=== PATIENT | male | born 1980 | race Caucasian/White ===

== ENCOUNTER 2016-08-01 12:42 | Emergency (ER) | payer MEDICAID, OTHER ==
[~2016-08-01] VITALS: Ht 175.3 cm; Wt 83.9 kg
[~2016-08-01 12:42] MED LIST: BUPR15TASR PO; GABA-283 PO; LATU40TA PO; LIDO1OIN2 TOP; MOTR200T44 PO; TRAZ10TA PO
[2016-08-01] MEDS ORDERED: METH40TA PO (13:13)
[2016-08-01] MEDS ORDERED: NEUR400C PO (14:27)
[2016-08-01 14:46] VITALS: BP 134/83
== END 2016-08-01 14:53 | disposition home or self-care (01) ==
LOC: M ED 14:37
DX: Z76.0 Encounter for issue of repeat prescription (principal); F19.10 Other psychoactive substance abuse, uncomplicated; F17.200 Nicotine dependence, unspecified, uncomplicated; Z88.5 Allergy status to narcotic agent; Z79.899 Other long term (current) drug therapy

== ENCOUNTER 2016-08-27 16:06 | Emergency (ER) | payer OTHER ==
[~2016-08-27] VITALS: Ht 175.3 cm; Wt 83.9 kg
[~2016-08-27 16:06] MED LIST changes: +METH40TA PO; +NEUR400C PO
[2016-08-27 16:13] VITALS: BP 129/77
[2016-08-27] MEDS ORDERED: GABA-283 PO (16:59)
== END 2016-08-27 17:12 | disposition home or self-care (01) ==
LOC: M ED 17:10
DX: Z76.0 Encounter for issue of repeat prescription (principal); M54.9 Dorsalgia, unspecified; F41.9 Anxiety disorder, unspecified; F33.9 Major depressive disorder, recurrent, unspecified; Z79.899 Other long term (current) drug therapy; Z79.891 Long term (current) use of opiate analgesic; Z88.5 Allergy status to narcotic agent; F17.210 Nicotine dependence, cigarettes, uncomplicated

== ENCOUNTER 2016-09-18 16:40 | Emergency (ER) | payer OTHER ==
[~2016-09-18] VITALS: Ht 175.3 cm; Wt 83.9 kg
[2016-09-18 16:41] VITALS: BP 158/83
[2016-09-18] MEDS ORDERED: GABA-283 PO (17:32)
== END 2016-09-18 18:15 | disposition home or self-care (01) ==
LOC: M ED 17:17
DX: Z76.0 Encounter for issue of repeat prescription (principal); M54.9 Dorsalgia, unspecified; Z88.8 Allergy status to other drugs, medicaments and biological substances; Z79.899 Other long term (current) drug therapy; F41.9 Anxiety disorder, unspecified; F32.9 Major depressive disorder, single episode, unspecified

== ENCOUNTER → 2016-11-05 | Outpatient (CLI) | payer MEDICAID | LOC: M OUTALCOH 09:45 | PROVIDERS: ATTEND Psychiatry & Neurology Psychiatry | DX: F11.20 Opioid dependence, uncomplicated (principal) ==

== ENCOUNTER 2016-11-19 16:40 | Emergency (ER) | payer OTHER ==
[~2016-11-19] VITALS: Ht 175.3 cm; Wt 83.2 kg
[2016-11-19] MEDS ORDERED: NEUR800T PO (16:51)
[2016-11-19 17:48] LABS: MEAN CORPUSCULAR HEMOGLOBIN 30.9 pg (27.0-33.0); MEAN CORPUSCULAR HGB CONC 34.8 g/dl (32.0-36.5); MEAN CORPUSCULAR VOLUME 88.5 fl (80.0-96.0); RED CELL DISTRIBUTION WIDTH 12.8 % (11.5-14.5)
[2016-11-19 18:30] LABS: ALBUMIN 4.4 GM/DL (3.2-5.2); ALBUMIN/GLOBULIN RATIO 1.22 (1.00-1.93); ALKALINE PHOSPHATASE 106 U/L (45-117); ALT/SGPT 25 U/L (12-78); ANION GAP 10 MEQ/L (8-16); AST/SGOT 22 U/L (15-37); BILIRUBIN,DIRECT 0.2 MG/DL (0.0-0.2); BILIRUBIN,TOTAL 0.9 MG/DL (0.2-1.0); BLOOD UREA NITROGEN 16 MG/DL (7-18); CALCIUM LEVEL 9.1 MG/DL (8.5-10.1); CARBON DIOXIDE LEVEL 27 MEQ/L (21-32); CHLORIDE LEVEL 102 MEQ/L (98-107); CREATININE FOR GFR 0.72 MG/DL (0.70-1.30); GLOMERULAR FILTRATION RATE > 60.0 (>60); GLUCOSE, FASTING 111 MG/DL (70-105); POTASSIUM SERUM 3.6 MEQ/L (3.5-5.1); SODIUM LEVEL 139 MEQ/L (136-145)
[2016-11-19 18:46] LABS: METHADONE URINE POSITIVE (NEGATIVE)
[2016-11-19 19:49] VITALS: BP 133/90
== END 2016-11-19 20:01 | disposition home or self-care (01) ==
LOC: M ED 17:36
DX: F19.10 Other psychoactive substance abuse, uncomplicated (principal); F31.9 Bipolar disorder, unspecified; F17.200 Nicotine dependence, unspecified, uncomplicated; F10.10 Alcohol abuse, uncomplicated; F12.10 Cannabis abuse, uncomplicated; F14.10 Cocaine abuse, uncomplicated; Z79.899 Other long term (current) drug therapy; Z88.5 Allergy status to narcotic agent

== ENCOUNTER 2016-11-26 16:00 | Outpatient (RCR) | payer OTHER ==
[~2016-11-26 16:00] MED LIST changes: +NEUR800T PO
== END 2016-11-28 ==
LOC: M PT 16:00
PROVIDERS: ATTEND Orthopaedic Surgery
DX: Z51.89 Encounter for other specified aftercare (principal); M54.5 Low back pain

== ENCOUNTER 2016-12-18 12:35 | Emergency (ER) | payer OTHER ==
[~2016-12-18] VITALS: Ht 175.3 cm; Wt 82.7 kg
[2016-12-18 12:35] VITALS: BP 136/68
[2016-12-18] MEDS ORDERED: RISP3TAB3 (12:46)
[2016-12-18] MEDS ORDERED: FLUO20CA19 (12:46)
--- NOTE | 2016-12-19 07:31 | ECGEPIP ---
Stationary ECG Study [facility] - ED Test Date: 2016-12-18 Pat Name: KWAME FOLEY Department: Room: - Gender: M [place]: : 1980 Requested By: Ludin Cordon Order Number: [id number] Reading MD: Audelia Dominguez Measurements Intervals [place] Rate: 106 P: 59 CO: 140 QRS: 67 QRSD: 95 T: 49 QT: 328 QTc: 437 Interpretive Statements SINUS TACHYCARDIA ABNORMAL RHYTHM ECG NO PRIOR FOR COMPARISON Electronically Signed On 12-19-2016 7:31:30 EDT by Audelia Dominguez
== END 2016-12-18 14:52 | disposition left against medical advice (07) ==
LOC: M ED 12:35
DX: T78.40XA Allergy, unspecified, initial encounter (principal); T43.595A Adverse effect of other antipsychotics and neuroleptics, initial encounter; Y92.9 Unspecified place or not applicable; Y93.9 Activity, unspecified; F41.9 Anxiety disorder, unspecified; F32.9 Major depressive disorder, single episode, unspecified; F43.10 Post-traumatic stress disorder, unspecified; F90.9 Attention-deficit hyperactivity disorder, unspecified type; R94.31 Abnormal electrocardiogram [ECG] [EKG]; Z79.899 Other long term (current) drug therapy; Z88.5 Allergy status to narcotic agent

== ENCOUNTER 2017-03-18 02:12 | Emergency (ER) | payer OTHER ==
[~2017-03-18] VITALS: Ht 175.3 cm; Wt 77.0 kg
[~2017-03-18 02:12] MED LIST changes: +FLUO20CA19; +RISP3TAB3
[2017-03-18 02:14] VITALS: BP 119/62
[2017-03-18] MEDS ORDERED: WELL200T PO (02:18)
== END 2017-03-18 03:16 | disposition home or self-care (01) ==
LOC: M ED 02:12
DX: F32.9 Major depressive disorder, single episode, unspecified (principal); F41.9 Anxiety disorder, unspecified; F43.10 Post-traumatic stress disorder, unspecified; F17.200 Nicotine dependence, unspecified, uncomplicated; F11.10 Opioid abuse, uncomplicated; Z79.899 Other long term (current) drug therapy

== ENCOUNTER 2017-12-28 07:09 | Inpatient (IN) | payer MEDICAID, SELFPAY, OTHER ==
[2017-12-28 08:40] LABS: HEMOGLOBIN 14.4 g/dl (13.5-17.5); MEAN CORPUSCULAR HEMOGLOBIN 31.6 pg (27.0-33.0); MEAN CORPUSCULAR HGB CONC 34.3 g/dl (32.0-36.5); MEAN CORPUSCULAR VOLUME 92.1 fl (80.0-96.0); PLATELET COUNT, AUTOMATED 286 10^3/uL (150-450); RED BLOOD COUNT 4.56 10^6/uL (4.30-6.10); RED CELL DISTRIBUTION WIDTH 12.9 % (11.5-14.5); WHITE BLOOD COUNT 9.6 10^3/uL (4.0-10.0)
[2017-12-28 08:59] LABS: AMPHETAMINES LEVEL URINE NEGATIVE (NEGATIVE); BARBITURATES URINE NEGATIVE (NEGATIVE); BENZODIAZEPINES URINE NEGATIVE (NEGATIVE); CANNABINOIDS URINE POSITIVE (NEGATIVE); COCAINE METABOLITE URINE POSITIVE (NEGATIVE); METHADONE URINE NEGATIVE (NEGATIVE); OPIATES URINE NEGATIVE (NEGATIVE); PHENCYCLIDINE URINE NEGATIVE (NEGATIVE)
[2017-12-28 09:10] LABS: ALBUMIN 3.7 GM/DL (3.2-5.2); ALBUMIN/GLOBULIN RATIO 1.16 (1.00-1.93); ALKALINE PHOSPHATASE 98 U/L (45-117); ALT/SGPT 30 U/L (12-78); ANION GAP 6 MEQ/L (8-16); AST/SGOT 17 U/L (7-37); BILIRUBIN,DIRECT 0.1 MG/DL (0.0-0.2); BILIRUBIN,TOTAL 0.5 MG/DL (0.2-1.0); BLOOD UREA NITROGEN 11 MG/DL (7-18); CALCIUM LEVEL 8.6 MG/DL (8.5-10.1); CARBON DIOXIDE LEVEL 28 MEQ/L (21-32); CHLORIDE LEVEL 105 MEQ/L (98-107); CREATININE FOR GFR 0.66 MG/DL (0.70-1.30); GLOMERULAR FILTRATION RATE > 60.0 (>60); GLUCOSE, FASTING 98 MG/DL (70-100); POTASSIUM SERUM 4.3 MEQ/L (3.5-5.1); SALICYLATE LEVEL < 1.7 MG/DL (5.0-30.0); SODIUM LEVEL 139 MEQ/L (136-145); THYROID STIMULATING HORMONE 0.771 uIU/ML (0.358-3.740); TOTAL PROTEIN 6.9 GM/DL (6.4-8.2)
[2017-12-28 09:20] LABS: ACETAMINOPHEN LEVEL < 2.0 UG/ML (10.0-30.0); ETHYL ALCOHOL (ETHANOL) < 0.003 % (0.000-0.010)
[2017-12-28] MEDS: NICOTINE 21MG/24HR 1 EA TRANSDERMAL TD (13:55)
[2017-12-28] MEDS: hydrOXYzine 50 MG TAB PO ×2 (13:57→20:27)
[2017-12-28] MEDS: ACETAMINOPHEN TAB 650MG DOSE (2X325MG) PO ×2 (13:58→20:28)
[2017-12-28] MEDS ORDERED: MOM 30ML SUSPENSION UDC PO (14:00)
[2017-12-28] MEDS ORDERED: MAALOX 30 ML SUSP *UDC PO (14:00)
[2017-12-28] MEDS: traZODone 50 MG TAB PO (20:27)
[2017-12-29] MEDS: IBUPROFEN 600 MG TAB PO ×2 (08:09→20:20)
[2017-12-29] MEDS: hydrOXYzine 50 MG TAB PO (08:09)
[2017-12-29] MEDS: NICOTINE 21MG/24HR 1 EA TRANSDERMAL TD (08:09)
[2017-12-29] MEDS: buPROPion **XL** TABLET 150MG (WELLBUTRIN XL) PO (11:51)
[2017-12-29] MEDS: FLUoxetine 20 MG CAP PO (11:51)
[2017-12-29] MEDS: SODIUM CHLORIDE NASAL 0.65% SPRAY BTL (OCEAN) (12:03)
[2017-12-29] MEDS: AUGMENTIN 875 MG TAB PO ×2 (14:32→20:19)
[2017-12-29 14:33] LABS: CHLAMYDIA DNA AMPLIFICATION NEGATIVE (NEGATIVE); GC DNA AMPLIFICATION NEGATIVE (NEGATIVE)
[2017-12-29] MEDS: ACETAMINOPHEN TAB 650MG DOSE (2X325MG) PO (14:33)
[2017-12-29 16:30] LABS: AMORPHOUS SEDIMENT RFX LARGE (NEGATIVE); KETONE, URINE AUTO RFX NEGATIVE (NEGATIVE); LEUKOCYTE ESTERASE UR AUTO RFX NEGATIVE (NEGATIVE); MUCUS, URINE RFX MODERATE (NEGATIVE); NITRITE, URINE AUTO RFX NEGATIVE (NEGATIVE); RBC, URINE AUTO RFX 0 /HPF (0-3); SPECIFIC GRAVITY UR AUTO RFX 1.026 (1.002-1.035); SQUAM EPITHELIAL CELL UR AURFX 0 /HPF (0-6); WBC, URINE AUTO RFX 0 /HPF (0-3)
[2017-12-29] MEDS: QUEtiapine FUMARATE 100 MG TAB PO (20:18)
[2017-12-30] MEDS: buPROPion **XL** TABLET 150MG (WELLBUTRIN XL) PO (08:34)
[2017-12-30] MEDS: AUGMENTIN 875 MG TAB PO ×2 (08:34→20:08)
[2017-12-30] MEDS: FLUoxetine 20 MG CAP PO (08:36)
[2017-12-30] MEDS: ACETAMINOPHEN TAB 650MG DOSE (2X325MG) PO ×3 (08:36→20:09)
[2017-12-30] MEDS: NICOTINE 21MG/24HR 1 EA TRANSDERMAL TD ×2 (08:36→09:41)
[2017-12-30 09:35] LABS: HEPATITIS B SURFACE ANTIGEN NEGATIVE (NEGATIVE)
[2017-12-30] MEDS: IBUPROFEN 600 MG TAB PO ×2 (09:35→16:04)
[2017-12-30] MEDS: SODIUM CHLORIDE NASAL 0.65% SPRAY BTL (OCEAN) ×3 (09:36→20:09)
[2017-12-30 10:02] LABS: HEPATITIS C VIRUS ABY INDEX 0.3 INDEX (<0.8)
[2017-12-30 10:03] LABS: HEPATITIS B CORE ANTIBODY IGM NEGATIVE (NEGATIVE); HIV 1&2 SCREEN CENTAUR NEGATIVE (NEGATIVE)
[2017-12-30 10:04] LABS: HEPATITIS A ANTIBODY IGM NEGATIVE (NEGATIVE)
[2017-12-30] MEDS: GABAPENTIN 300 MG CAP PO ×2 (15:00→20:08)
[2017-12-30] MEDS: QUEtiapine FUMARATE 100 MG TAB PO (20:08)
[2017-12-31] MEDS: ACETAMINOPHEN TAB 650MG DOSE (2X325MG) PO (06:23)
[2017-12-31] MEDS: SODIUM CHLORIDE NASAL 0.65% SPRAY BTL (OCEAN) ×2 (06:24→09:52)
[2017-12-31] MEDS: FLUoxetine 20 MG CAP PO (08:05)
[2017-12-31] MEDS: AUGMENTIN 875 MG TAB PO (08:05)
[2017-12-31] MEDS: GABAPENTIN 300 MG CAP PO (08:05)
[2017-12-31] MEDS: buPROPion **XL** TABLET 150MG (WELLBUTRIN XL) PO (08:05)
[2017-12-31] MEDS: IBUPROFEN 600 MG TAB PO (08:06)
== END 2017-12-31 11:20 | disposition home or self-care (01) | DRG 754 ==
LOC: M ED 07:09 → M ED INP 10:21 → M PSY 12:34
DX: F43.21 Adjustment disorder with depressed mood (principal); R45.851 Suicidal ideations; F60.2 Antisocial personality disorder; M54.5 Low back pain; R51 Headache; R31.9 Hematuria, unspecified; M54.2 Cervicalgia; F17.210 Nicotine dependence, cigarettes, uncomplicated; Z79.899 Other long term (current) drug therapy; Z76.5 Malingerer [conscious simulation]; Z88.8 Allergy status to other drugs, medicaments and biological substances

== ENCOUNTER 2018-08-26 15:42 | Emergency (ER) | payer MEDICAID ==
[~2018-08-26] VITALS: Ht 175.3 cm; Wt 79.5 kg
[~2018-08-26 15:42] MED LIST changes: +ALEV220T26 PO; +AMOX500C PO; +AMOX875T2 PO; +BUPR150T3 PO; +CIPRHCOTIC AS; +FLUO20CA19 PO; -GABA-283 PO; +GABA-843 PO; +GABA-845 PO; +HYDRO50TAB PO; +PROZ40CA PO; +QUET1TAB8 PO; +TRAZO50TA PO; +WELL200T PO
[2018-08-26] MEDS ORDERED: SUBO8MIS (15:53)
[2018-08-26] MEDS ORDERED: GABA800T4 (15:53)
[2018-08-26 18:16] LABS: BASO % 0.4 % (0.0-1.0); EOS # 0.2 10^3/uL (0.0-0.50); EOS % 3.4 % (0.0-3.0); HEMATOCRIT 42.7 % (42.0-52.0); HEMOGLOBIN 14.9 g/dl (13.5-17.5); LYMPH # 1.8 10^3/uL (1.5-4.5); LYMPH % 34.9 % (24.0-44.0); MEAN CORPUSCULAR HEMOGLOBIN 29.9 pg (27.0-33.0); MEAN CORPUSCULAR HGB CONC 34.9 g/dl (32.0-36.5); MEAN CORPUSCULAR VOLUME 85.7 fl (80.0-96.0); MONO # 0.6 10^3/uL (0.0-0.8); MONO % 12.3 % (0.0-5.0); NEUTROPHILS # 2.5 10^3/uL (1.8-7.7); NEUTROPHILS % 48.8 % (36.0-66.0); PLATELET COUNT, AUTOMATED 236 10^3/uL (150-450); RED BLOOD COUNT 4.98 10^6/uL (4.30-6.10); WHITE BLOOD COUNT 5.1 10^3/uL (4.0-10.0)
[2018-08-26 18:39] LABS: ALBUMIN 4.1 GM/DL (3.2-5.2); ALT/SGPT 282 U/L (12-78); BILIRUBIN,TOTAL 0.7 MG/DL (0.2-1.0); BLOOD UREA NITROGEN 11 MG/DL (7-18); CALCIUM LEVEL 8.6 MG/DL (8.5-10.1); CARBON DIOXIDE LEVEL 29 MEQ/L (21-32); CHLORIDE LEVEL 103 MEQ/L (98-107); CPK CREATINE PHOSPHOKINASE 129 U/L (39-308); CREATININE FOR GFR 0.64 MG/DL (0.70-1.30); GLOMERULAR FILTRATION RATE > 60.0 (>60); GLUCOSE, FASTING 80 MG/DL (70-100); LIPASE 204 U/L (73-393); POTASSIUM SERUM 3.9 MEQ/L (3.5-5.1); SODIUM LEVEL 139 MEQ/L (136-145); TOTAL PROTEIN 7.3 GM/DL (6.4-8.2); TROPONIN I < 0.02 NG/ML (< 0.10)
[2018-08-26 18:55] LABS: AMPHETAMINES LEVEL URINE POSITIVE (NEGATIVE); BARBITURATES URINE NEGATIVE (NEGATIVE); BENZODIAZEPINES URINE NEGATIVE (NEGATIVE); CANNABINOIDS URINE POSITIVE (NEGATIVE); COCAINE METABOLITE URINE NEGATIVE (NEGATIVE); METHADONE URINE NEGATIVE (NEGATIVE); OPIATES URINE NEGATIVE (NEGATIVE); PHENCYCLIDINE URINE NEGATIVE (NEGATIVE)
[2018-08-26 19:05] LABS: APPEARANCE, URINE CLEAR (CLEAR); BACTERIA, URINE AUTO NEGATIVE (NEGATIVE); BILIRUBIN, URINE AUTO NEGATIVE (NEGATIVE); BLOOD, URINE BLOOD NEGATIVE (NEGATIVE); COLOR, URINE AMBER (YELLOW); GLUCOSE, URINE (UA) AUTO NEGATIVE (NEGATIVE); KETONE, URINE AUTO TRACE mg/dL (NEGATIVE); LEUKOCYTE ESTERASE, URINE AUTO NEGATIVE (NEGATIVE); MUCUS, URINE SMALL (NEGATIVE); NITRITE, URINE AUTO NEGATIVE (NEGATIVE); PROTEIN, URINE AUTO NEGATIVE (NEGATIVE); RBC, URINE AUTO 0 /HPF (0-3); SPECIFIC GRAVITY URINE AUTO 1.025 (1.002-1.035); SQUAMOUS EPITHELIAL CELL UR AU 0 /HPF (0-6); WBC, URINE AUTO 1 /HPF (0-3)
--- NOTE | 2018-08-26 19:37 | REP ---
Clinical: Constipation and left-sided abdominal pain. Technique: Upright view of the chest with supine and upright views of the abdomen and pelvis. Findings: Frontal upright view of the chest demonstrates no acute cardiopulmonary process or free air below the diaphragm to suspect pneumoperitoneum. Supine and upright views of the abdomen and pelvis demonstrate nonspecific bowel gas pattern without obstruction or perforation. Mild/moderate fecal stasis and constipation is suggested. No organomegaly. No abnormal calcifications. Skeletal structures normal for age. Impression: mild/moderate fecal stasis Electronically Signed by Tony Wooten MD 08/26/2018 07:29 P
--- NOTE | 2018-08-26 20:14 | REP ---
Clinical: Elevated liver function tests and right upper quadrant pain . Technique: Hooks scale ultrasound using curved array transducer. Findings: The liver and pancreas are normal in contour, size, and echogenicity without focal hepatic or pancreatic lesions identified. The gallbladder is normal without gallstones, wall thickening or pericholecystic fluid. No biliary ductal dilatation is appreciated, and the common bile duct measures 4.3 mm diameter. The right kidney is normal in reniform shape without hydronephrosis and measures 11.6 x 5.2 x 6.1 cm. No ascites. Visualized portions of the abdominal aorta normal. Impression: Normal right upper quadrant and gallbladder abdominal ultrasound. Electronically Signed by Tony Wooten MD 08/26/2018 08:05 P
[2018-08-26] MEDS ORDERED: COLA100C5 PO (20:53)
[2018-08-26 21:28] VITALS: BP 116/60
[2018-08-27 09:45] LABS: HEPATITIS B SURFACE ANTIGEN NEGATIVE (NEGATIVE)
[2018-08-27 10:13] LABS: HEPATITIS B CORE ANTIBODY IGM NEGATIVE (NEGATIVE)
[2018-08-27 10:15] LABS: HEPATITIS A ANTIBODY IGM NEGATIVE (NEGATIVE); HEPATITIS C VIRUS ABY INDEX > 11.0 INDEX (<0.8)
== END 2018-08-26 21:26 | disposition home or self-care (01) ==
LOC: M ED 15:42
DX: K59.00 Constipation, unspecified (principal); R07.89 Other chest pain; R10.9 Unspecified abdominal pain; R79.9 Abnormal finding of blood chemistry, unspecified; R00.1 Bradycardia, unspecified; F17.200 Nicotine dependence, unspecified, uncomplicated; F33.9 Major depressive disorder, recurrent, unspecified; F41.9 Anxiety disorder, unspecified; F43.10 Post-traumatic stress disorder, unspecified; F20.9 Schizophrenia, unspecified; Z88.5 Allergy status to narcotic agent; Z88.8 Allergy status to other drugs, medicaments and biological substances; Z79.899 Other long term (current) drug therapy

== ENCOUNTER 2018-09-03 16:59 | Emergency (ER) | payer MEDICAID ==
[~2018-09-03] VITALS: Ht 175.3 cm; Wt 84.1 kg
[~2018-09-03 16:59] MED LIST changes: +COLA100C5 PO; +GABA800T4; +SUBO8MIS
[2018-09-03] MEDS ORDERED: NS 1,000 ML IV ONE ×2 (17:15→18:30)
[2018-09-03 17:31] LABS: BASO % 0.2 % (0.0-1.0); EOS # 0.2 10^3/uL (0.0-0.50); EOS % 3.2 % (0.0-3.0); HEMATOCRIT 40.8 % (42.0-52.0); HEMOGLOBIN 14.4 g/dl (13.5-17.5); LYMPH # 1.4 10^3/uL (1.5-4.5); MEAN CORPUSCULAR HEMOGLOBIN 30.6 pg (27.0-33.0); MEAN CORPUSCULAR HGB CONC 35.3 g/dl (32.0-36.5); MEAN CORPUSCULAR VOLUME 86.8 fl (80.0-96.0); MONO # 0.7 10^3/uL (0.0-0.8); MONO % 14.2 % (0.0-5.0); NEUTROPHILS # 2.5 10^3/uL (1.8-7.7); NEUTROPHILS % 53.2 % (36.0-66.0); PLATELET COUNT, AUTOMATED 237 10^3/uL (150-450); WHITE BLOOD COUNT 4.7 10^3/uL (4.0-10.0)
[2018-09-03 18:05] LABS: ACETAMINOPHEN LEVEL < 2.0 UG/ML (10.0-30.0); ALBUMIN 4.2 GM/DL (3.2-5.2); ALT/SGPT 182 U/L (12-78); BILIRUBIN,DIRECT 0.3 MG/DL (0.0-0.2); BILIRUBIN,TOTAL 0.8 MG/DL (0.2-1.0); BLOOD UREA NITROGEN 7 MG/DL (7-18); CALCIUM LEVEL 8.6 MG/DL (8.5-10.1); CARBON DIOXIDE LEVEL 28 MEQ/L (21-32); CHLORIDE LEVEL 102 MEQ/L (98-107); CPK CREATINE PHOSPHOKINASE 499 U/L (39-308); ETHYL ALCOHOL (ETHANOL) < 0.003 % (0.000-0.010); GLOMERULAR FILTRATION RATE > 60.0 (>60); GLUCOSE, FASTING 142 MG/DL (70-100); POTASSIUM SERUM 3.6 MEQ/L (3.5-5.1); SALICYLATE LEVEL 3.8 MG/DL (5.0-30.0); SODIUM LEVEL 137 MEQ/L (136-145); THYROID STIMULATING HORMONE 0.361 uIU/ML (0.358-3.740); TOTAL PROTEIN 7.2 GM/DL (6.4-8.2)
[2018-09-03 18:19] LABS: AMPHETAMINES LEVEL URINE POSITIVE (NEGATIVE); BARBITURATES URINE NEGATIVE (NEGATIVE); BENZODIAZEPINES URINE NEGATIVE (NEGATIVE); CANNABINOIDS URINE POSITIVE (NEGATIVE); COCAINE METABOLITE URINE NEGATIVE (NEGATIVE); METHADONE URINE NEGATIVE (NEGATIVE); OPIATES URINE POSITIVE (NEGATIVE); PHENCYCLIDINE URINE NEGATIVE (NEGATIVE)
[2018-09-03 20:05] VITALS: BP 109/65
--- NOTE | 2018-09-03 21:26 | ECGEPIP ---
Stationary ECG Study [facility] - ED Test Date: 2018-09-03 Pat Name: KWAME FOLEY Department: Room: - Gender: M Employment Legal Assistant: : 1980 Requested By: Audelia Dominguez Order Number: [id number] Reading MD: Yuniel Georges Measurements Intervals [place] Rate: 86 P: 57 AR: 140 QRS: 63 QRSD: 104 T: 43 QT: 380 QTc: 456 Interpretive Statements SINUS RHYTHM Nonspecific ST-T wave abnormalities Electronically Signed On 09-03-2018 21:25:48 EDT by Yuniel Georges
== END 2018-09-03 20:51 | disposition home or self-care (01) ==
LOC: M ED 16:59
DX: F19.10 Other psychoactive substance abuse, uncomplicated (principal); F20.9 Schizophrenia, unspecified; G89.29 Other chronic pain; Z72.0 Tobacco use; Z79.899 Other long term (current) drug therapy; Z88.5 Allergy status to narcotic agent; Z88.8 Allergy status to other drugs, medicaments and biological substances
CPT/HCPCS: 36415; 80048; 80076; 80307; 82550; 84443; 85025; 93005; 93041; 94760; 96360; 96361; 99284; G0480

== ENCOUNTER 2019-07-20 16:23 | Emergency (ER) | payer OTHER ==
[~2019-07-20] VITALS: Ht 175.3 cm; Wt 86.4 kg
[~2019-07-20 16:23] MED LIST changes: -FLUO20CA19; -FLUO20CA19 PO; +FLUO20CA22; +FLUO20CA22 PO; +HYDR1TAB33 PO; -HYDRO50TAB PO; +QUET100T2 PO; -QUET1TAB8 PO; -TRAZ10TA PO; +TRAZ1TAB10 PO; +TRAZ1TAB12 PO; -TRAZO50TA PO
[2019-07-20] MEDS ORDERED: ELIM5CRE2 TOP (17:41)
[2019-07-20 18:12] VITALS: BP 128/70
== END 2019-07-20 18:13 | disposition home or self-care (01) ==
LOC: M ED 16:23
DX: B86 Scabies (principal); Z79.899 Other long term (current) drug therapy; Z88.5 Allergy status to narcotic agent

== ENCOUNTER 2019-07-26 10:41 | Emergency (ER) | payer OTHER ==
[~2019-07-26] VITALS: Ht 175.3 cm; Wt 84.1 kg
[~2019-07-26 10:41] MED LIST changes: +ELIM5CRE2 TOP
[2019-07-26 12:40] LABS: BASO % 0.5 % (0.0-1.0); EOS # 0.1 10^3/uL (0.0-0.5); EOS % 2.6 % (0.0-3.0); HEMATOCRIT 40.4 % (42.0-52.0); HEMOGLOBIN 13.9 g/dl (13.5-17.5); LYMPH # 0.4 10^3/uL (1.5-5.0); LYMPH % 10.9 % (24.0-44.0); MEAN CORPUSCULAR HEMOGLOBIN 30.2 pg (27.0-33.0); MEAN CORPUSCULAR HGB CONC 34.4 g/dl (32.0-36.5); MEAN CORPUSCULAR VOLUME 87.8 fl (80.0-96.0); MONO # 0.8 10^3/uL (0.0-0.8); MONO % 21.9 % (0.0-5.0); NEUTROPHILS # 2.5 10^3/uL (1.5-8.5); NEUTROPHILS % 63.8 % (36.0-66.0); PLATELET COUNT, AUTOMATED 162 10^3/uL (150-450); WHITE BLOOD COUNT 3.8 10^3/uL (4.0-10.0)
[2019-07-26 13:02] LABS: AMPHETAMINES LEVEL URINE NEGATIVE (NEGATIVE); BARBITURATES URINE NEGATIVE (NEGATIVE); BENZODIAZEPINES URINE NEGATIVE (NEGATIVE); CANNABINOIDS URINE NEGATIVE (NEGATIVE); COCAINE METABOLITE URINE NEGATIVE (NEGATIVE); METHADONE URINE NEGATIVE (NEGATIVE); OPIATES URINE POSITIVE (NEGATIVE); PHENCYCLIDINE URINE NEGATIVE (NEGATIVE)
[2019-07-26 13:38] LABS: ALBUMIN 3.6 GM/DL (3.2-5.2); ALT/SGPT 30 U/L (12-78); BILIRUBIN,TOTAL 0.4 MG/DL (0.2-1.0); BLOOD UREA NITROGEN 9 MG/DL (7-18); C REACTIVE PROTEIN QUANTITATIV 9.63 MG/DL (0.00-0.30); CARBON DIOXIDE LEVEL 29 MEQ/L (21-32); CHLORIDE LEVEL 99 MEQ/L (98-107); CREATININE FOR GFR 0.74 MG/DL (0.70-1.30); GLOMERULAR FILTRATION RATE > 60.0 (>60); GLUCOSE, FASTING 120 MG/DL (70-100); POTASSIUM SERUM 3.6 MEQ/L (3.5-5.1); SODIUM LEVEL 133 MEQ/L (136-145); TOTAL PROTEIN 7.2 GM/DL (6.4-8.2)
[2019-07-26] MEDS ORDERED: IBUPROFEN 800 MG TAB PO ONE (14:00)
[2019-07-26 14:18] LABS: ERYTHROCYTE SEDIMENTATION RATE 22 mm/hr (0-15)
--- NOTE | 2019-07-26 14:41 | REP ---
CT LUMBAR SPINE WITHOUT CONTRAST: HISTORY: Moderate low back pain. Radiating to the right hip. No comparison CT study. Comparison radiographs December 31, 2015. TECHNIQUE: Helical scanning is acquired. 4 mm axial images are reformatted along with sagittal and coronal MPR images. CT FINDINGS: Lumbar vertebral body heights are preserved. No fracture or collapse is seen. There is fairly advanced degenerative disc disease at L4-5. This has progressed since the 2016 prior study. There is a vacuum phenomenon in the narrowed L4-5 disc and there is diffuse posterior broad-based disc protrusion with some discogenic calcification. There are irregular sclerotic endplate changes with subcortical cyst formation on both sides of the L4-5 disc. This appears to indent the ventral margin of the thecal sac at L4-5. There is no bony foraminal narrowing. There is no evidence spondylolysis or spondylolisthesis. Other disc spaces are maintained. There is some degenerative disc calcification at T12-L1. No other disc protrusion is seen. The visualized sacrum and SI joints are unremarkable. The urinary bladder is distended at the time of scanning. No definite hydronephrosis. No other extra vertebral abnormality. IMPRESSION: Progressive degenerative disc disease at L4-5. Broad-based disc protrusion at L4-5 with discogenic calcification. Electronically Signed by Balwinder Liao MD 07/26/2019 05:48 P
--- NOTE | 2019-07-26 14:44 | REP ---
RIGHT HIP: TWO VIEWS. HISTORY: Moderate pain. Elevated inflammatory markers. Comparison KUB study is from August 26, 2018. FINDINGS: AP and lateral views of the right hip show smooth, rounded femoral head. Hip joint space preserved. There is suggestion of mild superior acetabular hypertrophy and sclerosis. There is a bony convexity at the head/neck junction superolaterally in the proximal femur and this raises question of cam-type femoral acetabular impingement. Bones, joints, and soft tissues are otherwise unremarkable. No erosive changes seen. IMPRESSION: Bony convexity superolaterally at the head/neck junction of the proximal femur. Question femoroacetabular impingement. Electronically Signed by Balwinder Liao MD 07/26/2019 05:49 P
--- NOTE | 2019-07-26 16:37 | REP ---
CT RIGHT HIP: CT right hip performed without IV contrast in the axial plane. Sagittal and coronal reconstruction images are performed. Correlation is made with plain films of today. Each showed a possible cam type deformity at the femoral head and neck junction. The CT shows mild spurring of the lateral femoral head with no cam type deformity. There is also mild spurring of the acetabulum. There is mild joint space narrowing and subchondral sclerosis. There is no acute fracture or dislocation. There is no intrinsic osseous pathology. Surrounding soft tissue structures are unremarkable. Electronically Signed by Mehran Hooks MD 07/26/2019 08:22 P
[2019-07-26] MEDS ORDERED: PRED20TA PO (16:40)
[2019-07-26 17:11] VITALS: BP 119/59
== END 2019-07-26 17:13 | disposition home or self-care (01) ==
LOC: M ED 10:41 → EDBD 10:41 → M ED 17:13
DX: M25.551 Pain in right hip (principal); G89.29 Other chronic pain; M54.5 Low back pain; M51.26 Other intervertebral disc displacement, lumbar region; M51.36 Other intervertebral disc degeneration, lumbar region; F43.10 Post-traumatic stress disorder, unspecified; F11.10 Opioid abuse, uncomplicated; F41.9 Anxiety disorder, unspecified; F32.9 Major depressive disorder, single episode, unspecified; Z86.19 Personal history of other infectious and parasitic diseases; F17.200 Nicotine dependence, unspecified, uncomplicated; Z79.899 Other long term (current) drug therapy; Z88.5 Allergy status to narcotic agent

== ENCOUNTER 2019-07-29 20:58 | Emergency (ER) | payer OTHER ==
[~2019-07-29] VITALS: Ht 175.3 cm; Wt 81.0 kg
[~2019-07-29 20:58] MED LIST changes: +PRED20TA PO
[2019-07-29] MEDS ORDERED: BUPR8SUB SL (22:32)
[2019-07-29] MEDS ORDERED: PRED10TA2 PO (22:32)
[2019-07-29 23:25] LABS: AMPHETAMINES LEVEL URINE POSITIVE (NEGATIVE); BARBITURATES URINE NEGATIVE (NEGATIVE); BENZODIAZEPINES URINE NEGATIVE (NEGATIVE); CANNABINOIDS URINE POSITIVE (NEGATIVE); COCAINE METABOLITE URINE NEGATIVE (NEGATIVE); METHADONE URINE NEGATIVE (NEGATIVE); OPIATES URINE POSITIVE (NEGATIVE); PHENCYCLIDINE URINE NEGATIVE (NEGATIVE)
[2019-07-29 23:35] LABS: ACETAMINOPHEN LEVEL < 2.0 UG/ML (10.0-30.0); ALT/SGPT 29 U/L (12-78); BILIRUBIN,DIRECT 0.1 MG/DL (0.0-0.2); BILIRUBIN,TOTAL 0.3 MG/DL (0.2-1.0); BLOOD UREA NITROGEN 12 MG/DL (7-18); CALCIUM LEVEL 8.6 MG/DL (8.5-10.1); CARBON DIOXIDE LEVEL 29 MEQ/L (21-32); CHLORIDE LEVEL 105 MEQ/L (98-107); CREATININE FOR GFR 0.61 MG/DL (0.70-1.30); ETHYL ALCOHOL (ETHANOL) < 0.003 % (0.000-0.010); GLOMERULAR FILTRATION RATE > 60.0 (>60); GLUCOSE, FASTING 100 MG/DL (70-100); POTASSIUM SERUM 3.5 MEQ/L (3.5-5.1); SALICYLATE LEVEL 1.9 MG/DL (5.0-30.0); SODIUM LEVEL 141 MEQ/L (136-145); THYROID STIMULATING HORMONE 0.559 uIU/ML (0.358-3.740); TOTAL PROTEIN 7.4 GM/DL (6.4-8.2)
[2019-07-30 00:14] LABS: HEMATOCRIT 37.6 % (42.0-52.0); HEMOGLOBIN 13.1 g/dl (13.5-17.5); MEAN CORPUSCULAR HEMOGLOBIN 30.4 pg (27.0-33.0); MEAN CORPUSCULAR HGB CONC 34.8 g/dl (32.0-36.5); MEAN CORPUSCULAR VOLUME 87.2 fl (80.0-96.0); PLATELET COUNT, AUTOMATED 243 10^3/uL (150-450); RED BLOOD COUNT 4.31 10^6/uL (4.30-6.10); WHITE BLOOD COUNT 7.5 10^3/uL (4.0-10.0)
[2019-07-30] MEDS ORDERED: LORazepam 1 MG TAB PO ONE (01:00)
[2019-07-30] MEDS ORDERED: OLANZapine ORAL DISINTEGRATING TAB 5MG PO ONE (01:00)
[2019-07-30 06:02] VITALS: BP 130/59
--- NOTE | 2019-07-30 07:25 | ECGEPIP ---
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
[2019-07-31] MEDS ORDERED: ELIM5CRE2 TOP (22:44)
== END 2019-07-30 11:59 | disposition home or self-care (01) ==
LOC: M ED 20:58
DX: R00.0 Tachycardia, unspecified (principal); R94.31 Abnormal electrocardiogram [ECG] [EKG]; F19.151 Other psychoactive substance abuse with psychoactive substance-induced psychotic disorder with hallucinations; F14.10 Cocaine abuse, uncomplicated; F12.10 Cannabis abuse, uncomplicated; F17.200 Nicotine dependence, unspecified, uncomplicated; Z88.5 Allergy status to narcotic agent
CPT/HCPCS: 80048; 80076; 80307; 84443; 85027; 93005; 99284; G0480

== ENCOUNTER 2019-07-31 22:30 | Inpatient (IN) | payer MEDICAID, OTHER ==
[~2019-07-31] VITALS: Ht 175.3 cm; Wt 84.7 kg
[~2019-07-31 22:30] MED LIST changes: +BUPR8SUB SL; +PRED10TA2 PO
[2019-07-31] MEDS ORDERED: ELIM5CRE2 TOP (22:44)
[2019-08-01] MEDS ORDERED: diphenhydrAMINE INJ 50MG/ML VIAL (J1200) IM ONE (02:00)
[2019-08-01] MEDS ORDERED: methylPREDNISolone INJ 125 MG/2 ML VIAL (J2930) IM ONE (02:00)
[2019-08-01 03:09] LABS: HEMATOCRIT 40.8 % (42.0-52.0); HEMOGLOBIN 13.9 g/dl (13.5-17.5); MEAN CORPUSCULAR HEMOGLOBIN 29.6 pg (27.0-33.0); MEAN CORPUSCULAR HGB CONC 34.1 g/dl (32.0-36.5); PLATELET COUNT, AUTOMATED 284 10^3/uL (150-450); RED BLOOD COUNT 4.69 10^6/uL (4.30-6.10); WHITE BLOOD COUNT 8.6 10^3/uL (4.0-10.0)
[2019-08-01 03:29] LABS: AMPHETAMINES LEVEL URINE NEGATIVE (NEGATIVE); BARBITURATES URINE NEGATIVE (NEGATIVE); BENZODIAZEPINES URINE NEGATIVE (NEGATIVE); CANNABINOIDS URINE NEGATIVE (NEGATIVE); COCAINE METABOLITE URINE NEGATIVE (NEGATIVE); METHADONE URINE NEGATIVE (NEGATIVE); OPIATES URINE NEGATIVE (NEGATIVE); PHENCYCLIDINE URINE NEGATIVE (NEGATIVE)
[2019-08-01 03:49] LABS: ACETAMINOPHEN LEVEL < 2.0 UG/ML (10.0-30.0); ALBUMIN 3.6 GM/DL (3.2-5.2); ALT/SGPT 30 U/L (12-78); BILIRUBIN,DIRECT < 0.1 MG/DL (0.0-0.2); BILIRUBIN,TOTAL 0.3 MG/DL (0.2-1.0); BLOOD UREA NITROGEN 7 MG/DL (7-18); CALCIUM LEVEL 8.1 MG/DL (8.5-10.1); CARBON DIOXIDE LEVEL 30 MEQ/L (21-32); CHLORIDE LEVEL 105 MEQ/L (98-107); CREATININE FOR GFR 0.68 MG/DL (0.70-1.30); ETHYL ALCOHOL (ETHANOL) < 0.003 % (0.000-0.010); GLOMERULAR FILTRATION RATE > 60.0 (>60); GLUCOSE, FASTING 98 MG/DL (70-100); POTASSIUM SERUM 3.4 MEQ/L (3.5-5.1); SALICYLATE LEVEL < 1.7 MG/DL (5.0-30.0); SODIUM LEVEL 142 MEQ/L (136-145); THYROID STIMULATING HORMONE 0.375 uIU/ML (0.358-3.740); TOTAL PROTEIN 7.2 GM/DL (6.4-8.2)
[2019-08-01] MEDS: BUPRENORPHINE/NALOXONE 8-2MG SUBLINGUAL TABLET(SUBOXONE) SL SCH (09:00)
[2019-08-01] MEDS ORDERED: MAALOX 30 ML SUSP *UDC PO PRN (14:30)
[2019-08-01] MEDS ORDERED: MOM 30ML SUSPENSION UDC PO PRN (14:30)
[2019-08-01] MEDS ORDERED: IVERMECTIN 3 MG TAB (STROMECTOL) PO ONE (15:45)
[2019-08-01] MEDS: OLANZapine 5 MG TAB PO PRN (20:20)
[2019-08-01] MEDS: IBUPROFEN 400 MG TAB PO PRN (20:20)
[2019-08-02 06:32] VITALS: BP 103/54
[2019-08-02] MEDS: IBUPROFEN 400 MG TAB PO PRN (08:54)
[2019-08-02] MEDS: BUPRENORPHINE/NALOXONE 8-2MG SUBLINGUAL TABLET(SUBOXONE) SL SCH ×2 (08:55→15:01)
[2019-08-02] MEDS ORDERED: SODIUM CHLORIDE NASAL 0.65% SPRAY BTL (OCEAN) PRN (09:45)
[2019-08-02] MEDS: FLUTICASONE PROP 0.05% NASAL SPRAY 16 GM (FLONASE) NARES SCH ×2 (10:43→20:19)
[2019-08-02] MEDS: OLANZapine 5 MG TAB PO PRN ×2 (10:44→20:20)
[2019-08-02] MEDS: VANICREAM MOISTURIZING SKIN CREAM 113GM TUBE TOP SCH ×2 (10:44→20:19)
--- NOTE | 2019-08-02 10:44 | HPEPDOC ---
General Date of Admission Aug 01, 2019 at 14:21 Date of Service: Aug 02, 2019 Chief Complaint The patient is a 38-year-old male admitted with a reason for visit of Unspecified Psychotic Disorder. Source: Patient Exam Limitations: No limitations History of Present Illness Mr. Segura is a 38-year-old male who presented to the ED yesterday complaining of bugs all over his body. From the chart, he was assessed by the [facility] team following threats of suicide while in the ED. When seen in the [facility] today, patient reported that he did threaten to commit suicide if the problems he was having with his skin were not resolved. 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 He is also extremely concerned as he had a diagnosis of MRSA in 2003 in [place]. He believes that this continues to be an ongoing issue and that he should be tested for MRSA. Patient is concerned about his diagnosis of hepatitis C it appears that he was referred to a air brush decorator, and for some reason was lost to follow-up. It does not appear that he ever started treatment. He started to describe symptoms of chronic sinusitis including pressure in the sinus cavities and around the eyes and at the top of the cheekbones. Later stating that he has had bugs coming out of his nose and he is very worried that he has MRSA in his nose. He has also described symptoms of chronic dermatitis and seborrheic dermatitis for which he has requested treatment. Home Medications Scheduled Buprenorphine HCl (Buprenorphine HCl) 8 Mg Tab.subl, 8 MG SL BID, (Reported) Permethrin (Elimite) 60 Gm Cream..g., 1 APLCT TOP ASDIRECTED for ., (Reported) APPLY FROM NECK TO TOES Prednisone (Prednisone) 20 Mg Tablet, 20 MG PO ASDIRECTED for ., (Reported) FILLED 07/26/2019 60MG DAILY X 3 DAYS 40MG DAILY X 4 DAYS 20MG DAILY X 4 DAYS Allergies Coded Allergies: tramadol (Verified Allergy, Intermediate, HIVES, 08/26/18) Past Medical History Medical History Hepatitis C Degenerative disc disease L4 and L5. Chronic dermatitis. Nicotine dependence Substance abuse disorder History of MRSA diagnosed 2003 during an episode of folliculitis Surgical History None Family History Significant Family History: Diabetes (mother), Heart disease (mother), Lung disease (mother) Social History * Smoker: current smoker (1 pack per day, smoking since 12 years old) Alcohol: Denies Drugs: heroin (last relapse 2 weeks ago. Reported he has now quit), other ('Kaylin' 2 weeks ago) Recent Travel/Sick Contacts: Denies: Recent travel Psychosocial History: Bipolar, Keyshawn SI and HI, Personality disorder NOS, PTSD, Prior suicide attempt (reportedly a long time ago, cut his wrists), Other (substance abuse) A-FIB/CHADSVASC A-FIB History Current/History of A-Fib/PAF?: No Current PO Anticoag Therapy: No Review of Systems Constitutional: Denies: Chills, Fever, Night Sweats Eyes: Denies: Pain ENT: Reports: Sinus Congestion; Denies: Head Aches Skin: Reports: Rash, Itching, Dry; Denies: Lesions, Breakdown Pulmonary: Denies: Dyspnea, Cough Cardiovascular: Denies: Chest Pain, Palpitations, Edema Gastrointestinal: Denies: Nausea, Vomiting, Abdominal Pain, Diarrhea Genitourinary: Denies: Dysuria, Retention Hematologic: Denies: Bruising Musculoskeletal: Denies: Neck Pain, Back Pain, Joint Pain, Muscle Pain, Spasms Psych: Reports: Anxiety, Other Psych (per HPI) Physical Examination General Exam: Positive: Alert, Cooperative, No Acute Distress Eye Exam: Positive: PERRLA, Conjunctiva & lids normal, EOMI; Negative: Sclera icteric ENT Exam: Positive: Atraumatic, Mucous membr. moist/pink, Pharynx Normal, Tongue Midline; Negative: Pharyngeal Edema Neck Exam: Positive: Supple; Negative: thyromegaly, Lymphadenopathy Chest Exam: Positive: Clear to auscultation, Normal air movement Heart Exam: Positive: Rate Normal, Regular Rhythm, Normal S1, Normal S2; Negative: Murmurs, Rubs Telemetry: Positive: No significant arrhythmia Abdomen Exam: Positive: Normal bowel sounds, Soft; Negative: Tenderness Extremity Exam: Positive: Normal pulses; Negative: Clubbing, Cyanosis, Edema Skin Exam: Positive: Nl turgor and temperature; Negative: Rash, Breakdown, Lesion Neuro Exam: Positive: Normal Gait, Normal Speech, Strength at 5/5 X4 ext, Cranial Nerves 3-12 NL Psych Exam: Positive: Oriented x 3, Other (anxious and fixated on previous medical issues; see HPI) Vital Signs Vital Signs Date Time Temp Pulse Resp B/P (MAP) Pulse Ox O2 Delivery O2 Flow Rate FiO2 08/02/19 06:32 97.6 68 16 103/54 (70) Room Air 08/01/19 16:36 99 Assessment/Plan Mr. Segura is a 38-year-old male who presented to the ED yesterday complaining of bugs all over his body. From the chart, he was assessed by the [facility] team following threats of suicide while in the ED. When seen in the [facility] today, gigi ent reported that he did threaten to commit suicide if the problems he was having with his skin were not resolved. 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 He is also extremely concerned as he had a diagnosis of MRSA in 2003 in [place]. He believes that this continues to be an ongoing issue and t hat he should be tested for MRSA. Patient is concerned about his diagnosis of hepatitis C it appears that he was referred to a air brush decorator, and for some reason was lost to follow-up. It does not appear that he ever started treatment. He started to describe symptoms of chronic sinusitis including pressure in the sinus cavities and around the eyes and at the top of the cheekbones. Later stating that he has had bugs coming out of his nose and he is very worried that he has MRSA in his nose. He has also described symptoms of chronic dermatitis and seborrheic dermatitis for which he has requested treatment. Patient has a past medical history which includes: Hepatitis C, degenerative disc disease at L4 and 5, Chronic dermatitis, Polysubstance abuse disorder, nicotine abuse, history of MRSA diagnosed in 2003. Bipolar disorder, with psychosis. Complicated by polysubstance abuse and noncompliance issues Continued management per psychiatry Chronic sinusitis. Start nasal saline and Flonase -Continue Prednisone taper from outpt for resp Sx. No indication for antibiotics at this time based on physical exam Monitor symptoms History of bedbugs and scabies. Complicated by anxiety and depression. Treated to completion with ivermectin in the ED; previously treated with permethrin outpatient We will need to verify if permethrin should be continued; treated to completion per Pharmacy records Chronic hepatitis C Continue outpatient appointment per gastroenterology We'll need to set up follow-up appointment on discharge Degenerative disc disease. Currently takes Suboxone for opioid addiction Continue prn ibuprofen Chronic dermatitis/seborrheic dermatitis. No acute evidence of separate dermatitis. Start [facility] for dermatitis Medicine will sign off at this time. Please feel free to re-consult as needed. Plan / VTE VTE Prophylaxis Ordered?: No SHELBIE WYNN PA-C Aug 02, 2019 10:44
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
[2019-08-02] MEDS: NICOTINE 21MG/24HR 1 EA TRANSDERMAL TD SCH (11:56)
[2019-08-02] MEDS ORDERED: PRED20TA PO (14:29)
[2019-08-02] MEDS ORDERED: PERMETHRIN 5% CREAM 60 GM TOP SCH (14:45)
[2019-08-02] MEDS: predniSONE 20 MG TAB PO SCH (14:59)
[2019-08-02] MEDS ORDERED: BUPRENORPHINE/NALOXONE 8-2MG SUBLINGUAL TABLET(SUBOXONE) SL SCH (15:00)
[2019-08-02 16:03] VITALS: BP 124/65
[2019-08-02] MEDS: QUEtiapine FUMARATE 100 MG TAB PO PRN (20:20)
[2019-08-03 06:28] VITALS: BP 128/58
[2019-08-03] MEDS ORDERED: INFLUENZA QUADRIVALENT PF VACCINE 0.5ML SYRINGE (90686) IM ONE (09:00)
[2019-08-03] MEDS: BUPRENORPHINE/NALOXONE 8-2MG SUBLINGUAL TABLET(SUBOXONE) SL SCH ×2 (10:06→15:57)
[2019-08-03] MEDS: NICOTINE 21MG/24HR 1 EA TRANSDERMAL TD SCH (10:06)
[2019-08-03] MEDS: predniSONE 20 MG TAB PO SCH (10:06)
[2019-08-03] MEDS: FLUTICASONE PROP 0.05% NASAL SPRAY 16 GM (FLONASE) NARES SCH ×2 (10:07→21:06)
[2019-08-03] MEDS: VANICREAM MOISTURIZING SKIN CREAM 113GM TUBE TOP SCH ×2 (10:07→21:05)
--- NOTE | 2019-08-03 10:29 | MHIPNPDOC ---
[facility] Progress Note Progress Note Inpatient Progress Note Ricky Segura MRN: N/A Date of : N/A Date of Service: 08/03/2019 History of Present Illness The patient, a 38-year-old man with a significant history of substance use, presents to [facility] initially for a rash. He had been somewhat delusional during his examination, where he was evaluated by the ER mental health team and admitted out of an abundance of caution. When the patient was met with he reported that he had been scratching due to bed bugs in his home, but had been using multiple substances. He did appear somewhat over fixated on the rash, was redirectable. The patient did attempt to get Adderall or Ativan from myself, discussed with patient that this is an inappropriate treatment for him given his current symptoms. He generally admitted to the majority of symptoms, but he was unable to describe if they were when he was sober. Interval History The patient was met with today. He reports that the has had some constipation over last couple days and this is his primary concern today. He continues to be future oriented about going to rehab. He reports no major problems, took Seroquel last night for sleep due to difficulty sleeping. Sleeping and eating behaviors appear to be normal. Staff report show no major concerns and patient is generally amenable. He has no complaints today. Reports his depression and anxiety are improving with less low mood and anxiousness. Review Of Systems General: Denies fever or appetite changes Cardiovascular: Denies Chest pain or palpations GI: As above. Respiratory: Denies shortness of breath or cough Neuro: Denies dizziness, tremors Derm: Denies any rashes or pruritus : Denies any dysuria or urinary problems MSK: Denies any muscle tightness or stiffness HEENT: Denies any vision changes or headaches Psychotherapy None on this visit. Vital Signs Reviewed. Mental Status Examination General: Well dressed with good hygiene Speech: Spontaneous and fluid Thought processes: Linear and logical MSK: Smooth and coordinated gait, no signs of tremors or involuntary orofacial movements Thought content: Future orientated Abstract reasoning, and computation: Intact Description of associations: Intact Description of abnormal or psychotic thoughts: Denies any suicidal or homicidal ideation. Denies any auditory or visual hallucinations. Does not appear to be responding to internal stimuli. Does not appear to be endorsing any bizarre or paranoid ideation. Judgment: Chronically limited. Insight: Chronically limited. Orientation: Alert and orientated 3 Cognition: Grossly normal Recent and remote memory: Intact Attention span and concentration: Intact Fund of knowledge: Adequate Mood: "okay" Affect: Euthymic with a full range Diagnoses Unspecified psychosis. Likely substance induced. Opioid use disorder, severe. Methamphetamine use disorder, severe. Hallucinogen use disorder, severe. Tobacco use disorder, severe. Unspecified trauma stressor related disorder. Assessment and Plan Unspecified psychosis: We will start Abilify tonight 5 mg. Opioid, methamphetamine, hallucinogen use disorder: Referral for rehab undertaken. Resume home Suboxone 1 tab BID. Disposition The patient will need a further inpatient admission in order to stabilize his symptoms, try him on medications and plan for a safe and effective discharge. He will be converted to monitory status today. Time Spent 15 minutes. Thursday Vital Signs Vital Signs Date Time Temp Pulse Resp B/P (MAP) Pulse Ox O2 Delivery O2 Flow Rate FiO2 08/03/19 06:28 97.1 63 18 128/58 (81) 08/02/19 06:32 Room Air 08/01/19 16:36 99 Current Medications Current Medications Medications (Trade) Dose Ordered Sig/Jorge Route PRN Reason Start Time Stop Time Status Last Admin Dose Admin Al Hydrox/Mg Hydrox/Simethicone (Mylanta) 30 ml Q4HP PRN PO HEARTBURN/INDIGESTION 08/01/19 14:30 Buprenorphine/ Naloxone (Suboxone 8/2mg) 1 tab BID SL 08/02/19 15:00 08/02/19 14:58 DC Buprenorphine/ Naloxone (Suboxone 8/2mg) 1 tab BID@0900,1500 SL 08/02/19 15:00 08/03/19 10:06 Buprenorphine/ Naloxone (Suboxone 8/2mg) 1 tab DAILY SL 08/01/19 09:00 08/02/19 13:47 DC 08/02/19 08:55 Emollient Cream (Vanicream) APPLY TO AFFECTED AREA BID TOP 08/02/19 09:00 08/03/19 10:07 Fluticasone Propionate (Flonase 0.05% Nasal [place]) 1 spray BID NARES 08/02/19 09:00 08/03/19 10:07 Home Med (Med Rec Complete!) ASDIRECTED XX 08/02/19 14:30 08/02/19 14:31 DC Ibuprofen (Advil) 400 mg Q6HP PRN PO PAIN 08/01/19 14:30 08/02/19 08:54 Magnesium Hydroxide (Milk Of Magnesia) 30 ml DAILYPRN PRN PO CONSTIPATION 08/01/19 14:30 08/02/19 15:12 Nicotine (Nicoderm Cq 21mg) 1 patch DAILY TD 08/02/19 09:00 08/03/19 10:06 Olanzapine (ZyPREXA) 5 mg Q4HP PRN PO ANXIETY/AGITATION 08/01/19 14:30 08/02/19 20:20 Permethrin (Elimite 5%) 1 dose ASDIRECTED TOP 08/02/19 14:45 08/02/19 14:55 DC Prednisone (Deltasone) 20 mg DAILY PO 08/02/19 09:00 08/05/19 09:01 08/03/19 10:06 Quetiapine Fumarate (SEROquel) 100 mg QHSP PRN PO INSOMNIA 08/01/19 22:15 08/02/19 20:20 Sodium Chloride ([place] Nasal [place]) 2 spray Q2HP PRN NA NASAL DRYNESS 08/02/19 09:45 Allergies Coded Allergies: tramadol (Verified Allergy, Intermediate, HIVES, 08/26/18) BAL PATEL 4, 2020 10:29
[2019-08-03] MEDS ORDERED: GLYCERIN ADULT SUPP PR ONE (13:00)
[2019-08-03] MEDS ORDERED: BISACODYL 10 MG SUPP PR ONE (13:30)
[2019-08-03 16:23] VITALS: BP 136/67
[2019-08-03] MEDS: NICOTINE POLACRILEX 2 MG GUM PO PRN (18:12)
[2019-08-03] MEDS: ARIPiprazole 2 MG TAB PO SCH (21:06)
[2019-08-03] MEDS: IBUPROFEN 400 MG TAB PO PRN (21:07)
[2019-08-03] MEDS: OLANZapine 5 MG TAB PO PRN (21:07)
[2019-08-04 07:12] VITALS: BP 126/66
--- NOTE | 2019-08-04 08:42 | MHIPNPDOC ---
[facility] Progress Note Progress Note Inpatient Progress Note Ricky Segura MRN: N/A Date of : N/A Date of Service: 08/04/2019 History of Present Illness The patient, a 38-year-old man with a significant history of substance use, presents to [facility] initially for a rash. He had been somewhat delusional during his examination, where he was evaluated by the ER mental health team and admitted out of an abundance of caution. When the patient was met with he reported that he had been scratching due to bed bugs in his home, but had been using multiple substances. He did appear somewhat over fixated on the rash, was redirectable. The patient did attempt to get Adderall or Ativan from myself, discussed with patient that this is an inappropriate treatment for him given his current symptoms. He generally admitted to the majority of symptoms, but he was unable to describe if they were when he was sober. Interval History The patient was met with today. The patient reports that he is feeling much better, with less depression and anxiety. He reports tolerating his first dose of Abilify well. He reports that he did have some positive effects from the suppository. He otherwise has been attending groups more frequently. He is generally amenable and has been focused on calling rehabs and trying to advance his care. Staff reports he is generally motivated towards improvement. Review Of Systems General: Denies fever or appetite changes Cardiovascular: Denies chest pain or palpitations GI: As above. Respiratory: Denies shortness of breath or cough Neuro: Denies dizziness, tremors Derm: Denies any rashes or pruritus : Denies any dysuria or urinary problems MSK: Denies any muscle tightness or stiffness HEENT: Denies any vision changes or headaches Psychotherapy None on this visit. Vital Signs Reviewed. Mental Status Examination General: Well dressed with good hygiene Speech: Spontaneous and fluid Thought processes: Linear and logical MSK: Smooth and coordinated gait, no signs of tremors or involuntary orofacial movements Thought content: Future orientated Abstract reasoning, and computation: Intact Description of associations: Intact Description of abnormal or psychotic thoughts: Denies any suicidal or homicidal ideation. Denies any auditory or visual hallucinations. Does not appear to be responding to internal stimuli. Does not appear to be endorsing any bizarre or paranoid ideation. Judgment: Chronically limited. Insight: Chronically limited. Orientation: Alert and orientated 3 Cognition: Grossly normal Recent and remote memory: Intact Attention span and concentration: Intact Fund of knowledge: Adequate Mood: "okay" Affect: Euthymic with a full range Diagnoses Unspecified psychosis. Likely substance induced. Opioid use disorder, severe. Methamphetamine use disorder, severe. Hallucinogen use disorder, severe. Tobacco use disorder, severe. Unspecified trauma stressor related disorder. Assessment and Plan Unspecified psychosis: Continue Abilify 5 mg nightly. Opioid, methamphetamine, hallucinogen use disorder: Referral for rehab undertaken. Resume home Suboxone 1 tab BID. Disposition The patient will need a further inpatient admission in order to stabilize his symptoms, try him on medications and plan for a safe and effective discharge. He will be converted to voluntary status today. Time Spent 15 minutes. Vital Signs Vital Signs Date Time Temp Pulse Resp B/P (MAP) Pulse Ox O2 Delivery O2 Flow Rate FiO2 08/04/19 07:12 98.4 68 16 126/66 (86) 08/02/19 06:32 Room Air 08/01/19 16:36 99 Current Medications Current Medications Medications (Trade) Dose Ordered Sig/Jorge Route PRN Reason Start Time Stop Time Status Last Admin Dose Admin Al Hydrox/Mg Hydrox/Simethicone (Mylanta) 30 ml Q4HP PRN PO HEARTBURN/INDIGESTION 08/01/19 14:30 Aripiprazole (AbiLIFY) 2 mg QHS PO 08/03/19 21:00 08/03/19 21:06 Buprenorphine/ Naloxone (Suboxone 8/2mg) 1 tab BID SL 08/02/19 15:00 08/02/19 14:58 DC Buprenorphine/ Naloxone (Suboxone 8/2mg) 1 tab BID@0900,1500 SL 08/02/19 15:00 08/03/19 15:57 Buprenorphine/ Naloxone (Suboxone 8/2mg) 1 tab DAILY SL 08/01/19 09:00 08/02/19 13:47 DC 08/02/19 08:55 Emollient Cream (Vanicream) APPLY TO AFFECTED AREA BID TOP 08/02/19 09:00 08/03/19 21:05 Fluticasone Propionate (Flonase 0.05% Nasal [place]) 1 spray BID NARES 08/02/19 09:00 08/03/19 21:06 Home Med (Med Rec Complete!) ASDIRECTED XX 08/02/19 14:30 08/02/19 14:31 DC Ibuprofen (Advil) 400 mg Q6HP PRN PO PAIN 08/01/19 14:30 08/03/19 21:07 Magnesium Hydroxide (Milk Of Magnesia) 30 ml DAILYPRN PRN PO CONSTIPATION 08/01/19 14:30 08/02/19 15:12 Nicotine (Nicoderm Cq 21mg) 1 patch DAILY TD 08/02/19 09:00 08/03/19 17:34 DC 08/03/19 10:06 Nicotine (Nicorette) 2 mg Q2HP PRN PO SMOKING CESSATION 08/03/19 17:45 08/03/19 18:12 Olanzapine (ZyPREXA) 5 mg Q4HP PRN PO ANXIETY/AGITATION 08/01/19 14:30 08/03/19 21:07 Permethrin (Elimite 5%) 1 dose ASDIRECTED TOP 08/02/19 14:45 08/02/19 14:55 DC Prednisone (Deltasone) 20 mg DAILY PO 08/02/19 09:00 08/05/19 09:01 08/03/19 10:06 Quetiapine Fumarate (SEROquel) 100 mg QHSP PRN PO INSOMNIA 08/01/19 22:15 08/02/19 20:20 Sodium Chloride ([place] Nasal [place]) 2 spray Q2HP PRN NA NASAL DRYNESS 08/02/19 09:45 Allergies Coded Allergies: tramadol (Verified Allergy, Intermediate, HIVES, 08/26/18) BAL PATEL DO Aug 04, 2019 08:42
[2019-08-04] MEDS: predniSONE 20 MG TAB PO SCH (09:00)
[2019-08-04] MEDS: VANICREAM MOISTURIZING SKIN CREAM 113GM TUBE TOP SCH ×2 (09:00→21:00)
[2019-08-04] MEDS: FLUTICASONE PROP 0.05% NASAL SPRAY 16 GM (FLONASE) NARES SCH ×2 (09:00→21:00)
[2019-08-04] MEDS: NICOTINE POLACRILEX 2 MG GUM PO PRN (09:02)
[2019-08-04] MEDS: OLANZapine 5 MG TAB PO PRN ×2 (09:02→21:01)
[2019-08-04] MEDS: BUPRENORPHINE/NALOXONE 8-2MG SUBLINGUAL TABLET(SUBOXONE) SL SCH ×2 (09:09→14:47)
[2019-08-04] MEDS: BISACODYL 10 MG SUPP PR SCH (10:20)
[2019-08-04 16:20] VITALS: BP 136/68
[2019-08-04] MEDS: ARIPiprazole 2 MG TAB PO SCH (21:01)
[2019-08-04] MEDS: IBUPROFEN 400 MG TAB PO PRN (21:01)
[2019-08-04] MEDS: QUEtiapine FUMARATE 100 MG TAB PO PRN (21:01)
[2019-08-05 06:40] VITALS: BP 127/61
[2019-08-05] MEDS: predniSONE 20 MG TAB PO SCH (09:03)
[2019-08-05] MEDS: FLUTICASONE PROP 0.05% NASAL SPRAY 16 GM (FLONASE) NARES SCH ×2 (09:03→20:27)
[2019-08-05] MEDS: BISACODYL 10 MG SUPP PR SCH (09:03)
[2019-08-05] MEDS: VANICREAM MOISTURIZING SKIN CREAM 113GM TUBE TOP SCH ×2 (09:04→20:27)
[2019-08-05] MEDS: BUPRENORPHINE/NALOXONE 8-2MG SUBLINGUAL TABLET(SUBOXONE) SL SCH ×2 (09:38→14:27)
--- NOTE | 2019-08-05 10:50 | MHIPNPDOC ---
[facility] Progress Note Progress Note Inpatient Progress Note Ricky Segura MRN: N/A Date of : N/A Date of Service: 08/05/2019 History of Present Illness The patient, a 38-year-old man with a significant history of substance use, presents to [facility] initially for a rash. He had been somewhat delusional during his examination, where he was evaluated by the ER mental health team and admitted out of an abundance of caution. When the patient was met with he reported that he had been scratching due to bed bugs in his home, but had been using multiple substances. He did appear somewhat over fixated on the rash, was redirectable. The patient did attempt to get Adderall or Ativan from myself, discussed with patient that this is an inappropriate treatment for him given his current symptoms. He generally admitted to the majority of symptoms, but he was unable to describe if they were when he was sober. Interval History The patient was met with today. He reported that he was somewhat upset as he potentially wanted to go today, as he feels somewhat hopeless about the rehab situation. The hospitalist attestified that he does not need any skin treatment, thus which would remove his barrier to rehab. The patient reports that otherwise he is tolerating the Abilify well and he reports his moods are more stable and he feels less anxious. He does report feeling fatigued after taking the Suboxone, he continues to report that the meloxicam makes him feel tired. [facility], after discussion of the lack of availability of buprenorphine, the patient elected to continue on Suboxone. The patient has been attending groups at times, but has been fairly tired today. He denies that the Seroquel he took last night had any effect on him. He has had no major behavioral problems overnight per staff. Review Of Systems General: Denies fever or appetite changes Cardiovascular: Denies chest pain or palpitations Respiratory: Denies shortness of breath or cough Neuro: Denies dizziness, tremors Derm: Denies any rashes or pruritus : Denies any dysuria or urinary problems MSK: Denies any muscle tightness or stiffness HEENT: Denies any vision changes or headaches Psychotherapy None on this visit. Vital Signs Reviewed. Mental Status Examination General: Well dressed with good hygiene Speech: Spontaneous and fluid Thought processes: Linear and logical MSK: Smooth and coordinated gait, no signs of tremors or involuntary orofacial movements Thought content: Future orientated Abstract reasoning, and computation: Intact Description of associations: Intact Description of abnormal or psychotic thoughts: Denies any suicidal or homicidal ideation. Denies any auditory or visual hallucinations. Does not appear to be responding to internal stimuli. Does not appear to be endorsing any bizarre or paranoid ideation. Judgment: Chronically limited. Insight: Chronically limited. Orientation: Alert and orientated 3 Cognition: Grossly normal Recent and remote memory: Intact Attention span and concentration: Intact Fund of knowledge: Adequate Mood: "okay" Affect: Euthymic with a full range Diagnoses Unspecified psychosis. Likely substance induced. Opioid use disorder, severe. Methamphetamine use disorder, severe. Hallucinogen use disorder, severe. Tobacco use disorder, severe. Unspecified trauma stressor related disorder. Assessment and Plan Unspecified psychosis: Continue Abilify 5 mg nightly. Opioid, methamphetamine, hallucinogen use disorder: Referral for rehab undertaken. Continue home Suboxone 1 tab BID. Disposition The patient will need a further inpatient admission in order to stabilize his symptoms, try him on medications and plan for a safe and effective discharge. He is currently on a voluntary status. Time Spent 15 minutes. Thursday Vital Signs Vital Signs Date Time Temp Pulse Resp B/P (MAP) Pulse Ox O2 Delivery O2 Flow Rate FiO2 08/05/19 06:40 97.7 72 14 127/61 (83) Room Air 08/01/19 16:36 99 Current Medications Current Medications Medications (Trade) Dose Ordered Sig/Jorge Route PRN Reason Start Time Stop Time Status Last Admin Dose Admin Al Hydrox/Mg Hydrox/Simethicone (Mylanta) 30 ml Q4HP PRN PO HEARTBURN/INDIGESTION 08/01/19 14:30 Aripiprazole (AbiLIFY) 2 mg QHS PO 08/03/19 21:00 08/04/19 21:01 Bisacodyl (Dulcolax Suppository) 10 mg DAILY [place] 08/04/19 09:00 08/05/19 09:03 Buprenorphine/ Naloxone (Suboxone 8/2mg) 1 tab BID SL 08/02/19 15:00 08/02/19 14:58 DC Buprenorphine/ Naloxone (Suboxone 8/2mg) 1 tab BID@0900,1500 SL 08/02/19 15:00 08/05/19 09:38 Buprenorphine/ Naloxone (Suboxone 8/2mg) 1 tab DAILY SL 08/01/19 09:00 08/02/19 13:47 DC 08/02/19 08:55 Emollient Cream (Vanicream) APPLY TO AFFECTED AREA BID TOP 08/02/19 09:00 08/05/19 09:04 Fluticasone Propionate (Flonase 0.05% Nasal [place]) 1 spray BID NARES 08/02/19 09:00 08/05/19 09:03 Home Med (Med Rec Complete!) ASDIRECTED XX 08/02/19 14:30 08/02/19 14:31 DC Ibuprofen (Advil) 400 mg Q6HP PRN PO PAIN 08/01/19 14:30 08/04/19 21:01 Magnesium Hydroxide (Milk Of Magnesia) 30 ml DAILYPRN PRN PO CONSTIPATION 08/01/19 14:30 08/02/19 15:12 Nicotine (Nicoderm Cq 21mg) 1 patch DAILY TD 08/02/19 09:00 08/03/19 17:34 DC 08/03/19 10:06 Nicotine (Nicorette) 2 mg Q2HP PRN PO SMOKING CESSATION 08/03/19 17:45 08/04/19 09:02 Olanzapine (ZyPREXA) 5 mg Q4HP PRN PO ANXIETY/AGITATION 08/01/19 14:30 08/04/19 21:01 Permethrin (Elimite 5%) 1 dose ASDIRECTED TOP 08/02/19 14:45 08/02/19 14:55 DC Prednisone (Deltasone) 20 mg DAILY PO 08/02/19 09:00 08/05/19 09:01 DC 08/05/19 09:03 Quetiapine Fumarate (SEROquel) 100 mg QHSP PRN PO INSOMNIA 08/01/19 22:15 08/04/19 21:01 Sodium Chloride ([place] Nasal [place]) 2 spray Q2HP PRN NA NASAL DRYNESS 08/02/19 09:45 Allergies Coded Allergies: tramadol (Verified Allergy, Intermediate, HIVES, 08/26/18) BAL PATEL 6, 2020 10:50
--- NOTE | 2019-08-05 15:15 | IPNPDOC ---
Text Note Date of Service The patient was seen on 08/05/19. NOTE Assessment: On examination, patient does not appear to have scabies. He was also previously treated to completion with Ivermectin in the ED. At this time, he does appear to have a chronic dermatitis for which he has been provided treatment inpatient. VS,Fishbone, I+O VS, Fishbone, I+O Vital Signs Date Time Temp Pulse Resp B/P (MAP) Pulse Ox O2 Delivery O2 Flow Rate FiO2 08/05/19 06:40 97.7 72 14 127/61 (83) Room Air 08/01/19 16:36 99 SHELBIE WYNN PA-C Aug 05, 2019 15:15
[2019-08-05 16:09] VITALS: BP 137/72
[2019-08-05] MEDS: IBUPROFEN 400 MG TAB PO PRN (20:26)
[2019-08-05] MEDS: ARIPiprazole 2 MG TAB PO SCH (20:27)
[2019-08-05] MEDS ORDERED: traZODone 50 MG TAB PO SCH (21:00)
[2019-08-06 05:48] VITALS: BP 102/53
[2019-08-06] MEDS: VANICREAM MOISTURIZING SKIN CREAM 113GM TUBE TOP SCH ×2 (09:51→20:25)
[2019-08-06] MEDS: FLUTICASONE PROP 0.05% NASAL SPRAY 16 GM (FLONASE) NARES SCH ×2 (09:51→20:24)
[2019-08-06] MEDS: BUPRENORPHINE/NALOXONE 8-2MG SUBLINGUAL TABLET(SUBOXONE) SL SCH ×2 (09:52→14:42)
[2019-08-06] MEDS: BISACODYL 10 MG SUPP PR SCH (09:52)
[2019-08-06] MEDS: NICOTINE POLACRILEX 2 MG GUM PO PRN (15:04)
[2019-08-06 16:06] VITALS: BP 132/66
[2019-08-06] MEDS: OLANZapine 5 MG TAB PO PRN (20:25)
[2019-08-06] MEDS: NICOTINE 21MG/24HR 1 EA TRANSDERMAL TD PRN (20:25)
[2019-08-06] MEDS: QUEtiapine FUMARATE 100 MG TAB PO PRN (20:25)
[2019-08-06] MEDS: ARIPiprazole 2 MG TAB PO SCH (20:25)
[2019-08-07 06:20] VITALS: BP 140/63
[2019-08-07] MEDS: VANICREAM MOISTURIZING SKIN CREAM 113GM TUBE TOP SCH ×2 (09:21→20:50)
[2019-08-07] MEDS: BUPRENORPHINE/NALOXONE 8-2MG SUBLINGUAL TABLET(SUBOXONE) SL SCH ×2 (09:21→14:56)
[2019-08-07] MEDS: IBUPROFEN 400 MG TAB PO PRN ×2 (09:21→20:48)
[2019-08-07] MEDS: FLUTICASONE PROP 0.05% NASAL SPRAY 16 GM (FLONASE) NARES SCH ×2 (09:21→20:48)
[2019-08-07] MEDS: BISACODYL 10 MG SUPP PR SCH (09:21)
[2019-08-07 16:17] VITALS: BP 129/63
[2019-08-07] MEDS: QUEtiapine FUMARATE 100 MG TAB PO PRN (20:48)
[2019-08-07] MEDS: ARIPiprazole 2 MG TAB PO SCH (20:50)
[2019-08-07] MEDS: NICOTINE 21MG/24HR 1 EA TRANSDERMAL TD PRN (20:58)
[2019-08-08 06:14] VITALS: BP 123/69
[2019-08-08] MEDS: BISACODYL 10 MG SUPP PR SCH (09:00)
[2019-08-08] MEDS: VANICREAM MOISTURIZING SKIN CREAM 113GM TUBE TOP SCH (09:00)
[2019-08-08] MEDS: FLUTICASONE PROP 0.05% NASAL SPRAY 16 GM (FLONASE) NARES SCH (09:58)
[2019-08-08] MEDS: BUPRENORPHINE/NALOXONE 8-2MG SUBLINGUAL TABLET(SUBOXONE) SL SCH (09:58)
[2019-08-08] MEDS ORDERED: ABIL1TAB13 PO (10:44)
[2019-08-08] MEDS ORDERED: NICO21PAT TD (10:44)
--- NOTE | 2019-08-08 10:54 | MHDSPDOC ---
[facility] Discharge Summary Discharge Summary DATE OF ADMISSION: Aug 01, 2019 at 14:21 DATE OF DISCHARGE: 08/08/19 Discharge Ricky Segura MRN: N/A Date of : N/A Date of Service: 08/08/2019 Diagnoses Unspecified psychosis. Likely substance induced. Opioid use disorder, severe. Methamphetamine use disorder, severe. Hallucinogen use disorder, severe. Tobacco use disorder, severe. Unspecified trauma stressor related disorder. History of Present Illness The patient, a 38-year-old man with a significant history of substance use, presents to [facility] initially for a rash. He had been somewhat delusional during his examination, where he was evaluated by the ER mental health team and admitted out of an abundance of caution. When the patient was met with he reported that he had been scratching due to bed bugs in his home, but had been using multiple substances. He did appear somewhat over fixated on the rash, was redirectable. The patient did attempt to get Adderall or Ativan from myself, discussed with patient that this is an inappropriate treatment for him given his current symptoms. He generally admitted to the majority of symptoms, but he was unable to describe if they were when he was sober. Consultants Involved Hospitalist/PCP screening Treatment and Progress On The Unit The patient was admitted to the inpatient unit. He was resumed on his home Suboxone dose, he reported that he was on pure buprenorphine, however, after discussion that we did not have pure buprenorphine, he agreed to take the Suboxone. He was started on Abilify 5 mg nightly, increased to 10 mg nightly with positive effects on his mood. He did well becoming more mood stable and amenable on the unit. He had no major behavioral problems and generally complied with instructions. He attended groups at times. He is stabilized well and initially was interested in rehab, however, after a weekend of thinking he suddenly changed his mind and decided against that as he would rather pursue it as an outpatient. Discharge Assessment 38-year-old man with a significant substance use history and history of trauma presents after using various hallucinogens becoming psychotic, he resolves well with little support and is mood stabilized on Abilify. The patient at the time of discharge did not meet criteria for involuntary admission/extension due to having a normal mental status exam, fair insight into the situation, They are engaged in the discharge process, as well as being friendly and amenable in behavioral control and havent been engaging in any observed concerning behavior or ideation recently. They decline voluntary extension/admission at this time and must be discharged in good rory, as Im unable to make a case for holding the patient against their will. They may have historical risk factors of admissions and other interactions with psychiatry however, those are not modifiable from a clinical perspective. The patient will need to be discharged in good rory. Mental Status Examination General: Well dressed with good hygiene Speech: Spontaneous and fluid Thought processes: Linear and logical MSK: Smooth and coordinated gait, no signs of tremors or involuntary orofacial movements Thought content: Future orientated Abstract reasoning, and computation: Intact Description of associations: Intact Description of abnormal or psychotic thoughts: Denies any suicidal or homicidal ideation. Denies any auditory or visual hallucinations. Does not appear to be responding to internal stimuli. Does not appear to be endorsing any bizarre or paranoid ideation. Judgment: fair Insight: fair Orientation: Alert and orientated 3 Cognition: Grossly normal Recent and remote memory: Intact Attention span and concentration: Intact Fund of knowledge: Adequate Mood: "okay" Affect: Euthymic with a full range Follow Up The social work team worked during the predischarge meeting in order to evaluate for further issues of lethality address them fully before discharge. They worked on safety planning with the patient's family members in order to ensure that the patient will have a safe and effective discharge. Time Spent The amount of time spent in the coordination of care for this patient was approximately 45 minutes. Thursday Vital Signs/I&Os Vital Signs Date Time Temp Pulse Resp B/P (MAP) Pulse Ox O2 Delivery O2 Flow Rate FiO2 08/08/19 06:14 97.2 70 16 123/69 (87) 08/05/19 06:40 Room Air Medications Scheduled Aripiprazole (Abilify) 2 Mg Tablet, 2 MG PO QHS for mood for 7 Days, #7 Buprenorphine HCl (Buprenorphine HCl) 8 Mg Tab.subl, 8 MG SL BID, (Reported) Permethrin (Elimite) 60 Gm Cream..g., 1 APLCT TOP ASDIRECTED for ., (Reported) APPLY FROM NECK TO TOES Scheduled PRN Nicotine (Nicotine Patch) 21 Mg Patch.td24, 1 PATCH TD DAILYPRN PRN for NICOTINE WITHDRAWAL for 30 Days, #30 Allergies Coded Allergies: tramadol (Verified Allergy, Intermediate, HIVES, 08/26/18) BAL PATEL DO Aug 08, 2019 10:54
[2019-08-08] MEDS: IBUPROFEN 400 MG TAB PO PRN (12:27)
[2019-08-08] MEDS: OLANZapine 5 MG TAB PO PRN (12:28)
== END 2019-08-08 13:53 | disposition home or self-care (01) | DRG 773 ==
LOC: M ED 22:30 → M ED INP 08-01 14:21 → M PSY 08-01 16:40
PROVIDERS: ADMIT Psychiatry & Neurology Addiction Medicine; ATTEND Psychiatry & Neurology Addiction Medicine
DX: F19.94 Other psychoactive substance use, unspecified with psychoactive substance-induced mood disorder (principal); R45.851 Suicidal ideations; F11.90 Opioid use, unspecified, uncomplicated; F17.200 Nicotine dependence, unspecified, uncomplicated; F16.90 Hallucinogen use, unspecified, uncomplicated; F15.90 Other stimulant use, unspecified, uncomplicated; Z88.8 Allergy status to other drugs, medicaments and biological substances; Z79.899 Other long term (current) drug therapy; B18.2 Chronic viral hepatitis C; L30.9 Dermatitis, unspecified; M51.36 Other intervertebral disc degeneration, lumbar region; Z91.19 Patient's noncompliance with other medical treatment and regimen; J32.9 Chronic sinusitis, unspecified; L21.9 Seborrheic dermatitis, unspecified

== ENCOUNTER 2019-08-12 06:54 | Emergency (ER) | payer MEDICAID, OTHER ==
[~2019-08-12] VITALS: Ht 175.3 cm; Wt 82.7 kg
[~2019-08-12 06:54] MED LIST changes: +ABIL1TAB13 PO; +NICO21PAT TD
[2019-08-12 09:35] VITALS: BP 132/64
== END 2019-08-12 09:37 | disposition home or self-care (01) ==
LOC: M ED 06:54
DX: L30.9 Dermatitis, unspecified (principal); Z79.899 Other long term (current) drug therapy; Z88.5 Allergy status to narcotic agent

== ENCOUNTER 2019-11-24 01:12 | Emergency (ER) | payer OTHER ==
[~2019-11-24] VITALS: Ht 175.3 cm; Wt 78.1 kg
[2019-11-24 01:12] VITALS: BP 144/81
[~2019-11-24 01:12] MED LIST changes: -BUPR150T3 PO; +BUPR150T4 PO; +GABA-282 PO; -GABA-843 PO; +RISP-10; -RISP3TAB3
[2019-11-24] MEDS ORDERED: AUGMENTIN 875 MG TAB PO ONE (02:45)
[2019-11-24] MEDS ORDERED: NORCO 5/325MG TABLET (BULK FOR ED) PO ONE (02:45)
[2019-11-24] MEDS ORDERED: AUGM500T34 PO (02:50)
== END 2019-11-24 03:34 | disposition home or self-care (01) ==
LOC: EEVIPCON 01:12 → M ED 01:12
DX: L03.311 Cellulitis of abdominal wall (principal)

== ENCOUNTER 2022-03-14 01:38 | Emergency (ER) | payer MEDICAID, OTHER ==
[~2022-03-14] VITALS: Ht 175.3 cm; Wt 81.8 kg
[~2022-03-14 01:38] MED LIST changes: +AUGM500T34 PO; +BUPR150T12 PO; -BUPR150T4 PO; +GABA-283 PO; -GABA-845 PO; -LATU40TA PO; +LATU40TA2 PO
[2022-03-14 09:37] LABS: BASO % 0.2 % (0.0-1.0); EOS # 0.1 10^3/uL (0.0-0.5); EOS % 1.9 % (0.0-3.0); HEMOGLOBIN 11.9 g/dl (13.5-17.5); LYMPH % 19.6 % (24.0-44.0); MEAN CORPUSCULAR HEMOGLOBIN 31.1 pg (27.0-33.0); MEAN CORPUSCULAR VOLUME 91.4 fl (80.0-96.0); MONO # 0.7 10^3/uL (0.0-0.8); MONO % 13.4 % (2.0-8.0); NEUTROPHILS # 3.1 10^3/uL (1.5-8.5); NEUTROPHILS % 64.7 % (36.0-66.0); PLATELET COUNT, AUTOMATED 227 10^3/uL (150-450); RED BLOOD COUNT 3.83 10^6/uL (4.30-6.10); WHITE BLOOD COUNT 4.9 10^3/uL (4.0-10.0)
[2022-03-14 10:23] LABS: AMPHETAMINES LEVEL URINE POSITIVE (NEGATIVE); BARBITURATES URINE NEGATIVE (NEGATIVE); BENZODIAZEPINES URINE NEGATIVE (NEGATIVE); CANNABINOIDS URINE POSITIVE (NEGATIVE); COCAINE METABOLITE URINE POSITIVE (NEGATIVE); METHADONE URINE NEGATIVE (NEGATIVE); OPIATES URINE POSITIVE (NEGATIVE); PHENCYCLIDINE URINE NEGATIVE (NEGATIVE)
[2022-03-14 10:34] LABS: ACETAMINOPHEN LEVEL < 2.0 UG/ML (10.0-30.0); ALBUMIN 3.1 GM/DL (3.2-5.2); ALT/SGPT 39 U/L (12-78); BILIRUBIN,DIRECT 0.1 MG/DL (0.0-0.2); BILIRUBIN,TOTAL 0.3 MG/DL (0.2-1.0); BLOOD UREA NITROGEN 8 MG/DL (7-18); CALCIUM LEVEL 8.5 MG/DL (8.5-10.1); CARBON DIOXIDE LEVEL 31 MEQ/L (21-32); CHLORIDE LEVEL 101 MEQ/L (98-107); CREATININE FOR GFR 0.51 MG/DL (0.70-1.30); ETHYL ALCOHOL (ETHANOL) 0.008 % (0.000-0.010); GLOMERULAR FILTRATION RATE > 60.0 (>60); GLUCOSE, FASTING 114 MG/DL (70-100); POTASSIUM SERUM 3.4 MEQ/L (3.5-5.1); SODIUM LEVEL 136 MEQ/L (136-145); THYROID STIMULATING HORMONE 0.364 uIU/ML (0.358-3.740); TOTAL PROTEIN 6.3 GM/DL (6.4-8.2)
[2022-03-14 11:39] LABS: RSV AMPLIFICATION NEGATIVE (NEGATIVE)
[2022-03-14 11:46] VITALS: BP 122/62
== END 2022-03-14 12:02 | disposition home or self-care (01) ==
LOC: M ED 01:38
DX: F32.9 Major depressive disorder, single episode, unspecified (principal); F19.10 Other psychoactive substance abuse, uncomplicated; S22.32XA Fracture of one rib, left side, initial encounter for closed fracture; Y04.0XXA Assault by unarmed brawl or fight, initial encounter; M41.9 Scoliosis, unspecified; Z88.5 Allergy status to narcotic agent

== ENCOUNTER 2022-04-17 23:23 | Emergency (ER) | payer MEDICAID, OTHER ==
[~2022-04-17] VITALS: Ht 175.3 cm; Wt 78.2 kg
[2022-04-17 23:23] VITALS: BP 137/80
== END 2022-04-18 02:17 | disposition left against medical advice (07) ==
LOC: M ED 23:23
DX: Z53.21 Procedure and treatment not carried out due to patient leaving prior to being seen by health care provider (principal)

== ENCOUNTER → 2022-07-24 | Outpatient (CLI) | payer OTHER ==
[~2022-07-24] MED LIST changes: +E-Z-GAS II EFFERVESCENT PACKET (SODIUM BICARB./CITRIC ACID/SIMETHICONE) As Ordered ONE; +E-Z-HD 98% w/w 340GM SUSP BTL As Ordered ONE; +E-Z-PAQUE 96% w/w SUSP 176GM BTL As Ordered ONE
== END ==
LOC: M RAD 09:34
PROVIDERS: ATTEND Physician Assistant Medical
DX: R07.0 Pain in throat (principal); R93.5 Abnormal findings on diagnostic imaging of other abdominal regions, including retroperitoneum

== ENCOUNTER → 2022-10-17 | Outpatient (CLI) | payer OTHER ==
[~2022-10-17] MED LIST changes: -E-Z-GAS II EFFERVESCENT PACKET (SODIUM BICARB./CITRIC ACID/SIMETHICONE) As Ordered ONE; -E-Z-HD 98% w/w 340GM SUSP BTL As Ordered ONE; -E-Z-PAQUE 96% w/w SUSP 176GM BTL As Ordered ONE
[2022-10-17 18:01] LABS: HEMATOCRIT 39.7 % (42.0-52.0); HEMOGLOBIN 13.5 g/dl (13.5-17.5); MEAN CORPUSCULAR HEMOGLOBIN 30.9 pg (27.0-33.0); MEAN CORPUSCULAR VOLUME 90.8 fl (80.0-96.0); PLATELET COUNT, AUTOMATED 207 10^3/uL (150-450); RED BLOOD COUNT 4.37 10^6/uL (4.30-6.10); WHITE BLOOD COUNT 4.9 10^3/uL (4.0-10.0)
[2022-10-17 18:21] LABS: ALKALINE PHOSPHATASE 67 U/L (46-116); ALT/SGPT 18 U/L (7.0-40); AST/SGOT 22 U/L (<34); BILIRUBIN,TOTAL 0.3 MG/DL (0.3-1.2); BLOOD UREA NITROGEN 13 MG/DL (9-23); CARBON DIOXIDE LEVEL 28 MMOL/L (20-31); CHLORIDE LEVEL 102 MMOL/L (98-107); CREATININE FOR GFR 0.66 MG/DL (0.70-1.30); GLOMERULAR FILTRATION RATE > 60.0 (>60); GLUCOSE, FASTING 96 MG/DL (60-100); POTASSIUM SERUM 4.3 MMOL/L (3.5-5.1); SODIUM LEVEL 139 MMOL/L (136-145); TOTAL PROTEIN 6.7 G/DL (5.7-8.2)
[2022-10-17 18:31] LABS: HEPATITIS B SURFACE ANTIGEN NEGATIVE (NEGATIVE)
[2022-10-17 18:44] LABS: HIV 1&2 SCREEN NEGATIVE (NEGATIVE)
[2022-10-17 18:53] LABS: HEPATITIS C VIRUS ABY INDEX > 11.0 INDEX (<0.8)
[2022-10-17 19:43] LABS: GC DNA AMPLIFICATION NEGATIVE (NEGATIVE)
== END ==
LOC: M WUC 12:58
PROVIDERS: ATTEND Family Medicine
DX: Z13.9 Encounter for screening, unspecified (principal)